=== PATIENT | male | born 1990 | race Caucasian/White ===

== ENCOUNTER 2023-06-07 12:09 | Emergency (ER) | payer OTHER, SELFPAY ==
[2023-06-07 12:18] VITALS: BP 133/83
[2023-06-07 12:37] LABS: % Basophils 1.4 % (0-2); % Eosinophils 6.8 % (0-6); % Immature Granulocytes 0.2 % (0-0.5); % Lymphocytes 25.1 % (20.5-51.1); % Monocytes 9.6 % (1.7-9.3); % Neutrophils 56.9 % (42.2-75.2); Absolute Basophils 0.1 10^3/uL (0-0.2); Absolute Eosinophils 0.3 10^3/uL (0-0.7); Absolute Lymphocytes 1.3 10^3/uL (1.2-3.4); Absolute Monocytes 0.5 10^3/uL (0.1-0.6); Absolute Neutrophils 2.9 10^3/uL (1.4-6.5); Hematocrit 42.8 % (39.0-52.0); Hemoglobin 15.4 g/dL (13.0-18.0); Mean Corpuscular Volume 86.3 fL (80.0-94.0); Mean Platelet Volume 9.4 fL (7.4-10.4); Nucleated Red Blood Cells % 0 % (-); Platelet Count 221 10^3/uL (130-400); Red Blood Cell Count 4.96 10^6/uL (4.70-6.10); Red Cell Dist. Width 11.7 % (11.5-14.5)
[2023-06-07 12:48] LABS: ALT (SGPT) 31 U/L (0-50); AST (SGOT) 28 U/L (17-59); Alkaline Phosphatase 66 U/L (38-126); Blood Urea Nitrogen 20 mg/dl (9-20); Calcium 9.4 mg/dl (8.4-10.2); Carbon Dioxide 33 mmol/L (22-30); Chloride 102 mmol/L (98-107); Glucose 96 mg/dl (70-99); Potassium 4.2 mmol/L (3.5-5.1); Sodium 141 mmol/L (135-145); Total Bilirubin 0.6 mg/dl (0.2-1.3); Total Protein 6.5 g/dl (6.3-8.2); eGFR > 60.00
[2023-06-07 12:59] LABS: Troponin I < 0.012 ng/ml
[2023-06-07 14:46] VITALS: BP 126/80
--- NOTE | 2023-06-07 15:10 | ED.GENMED ---
History of Present Illness
General
Chief Complaint: Chest Pain
Source: patient
Exam Limitations: none
Time Seen by Provider: 06/07/23 15:09
Nursing documentation reviewed up to this point in time: agreed with
Travel History
Have you had any contact with someone who has COVID-19?: No
Do you have any symptoms of coronavirus? Fever > 100 degrees, chills, cough, shortness of breath, sore throat, loss of taste or smell, muscle aches, or headache?: No
History of Present Illness
History of Present Illness:
Patient with history of ADHD and anxiety, presents to ED secondary to 2-day history of intermittent left-sided chest pain. Chest pain described as dull, achy, with intermittent radiation to neck and left arm, without any alleviating or exacerbating
factors. Denies fever or chills. Denies recent illness. Denies recent travel or surgery. Denies back pain. Denies leg pain or swelling. Denies recent change in medications or diet. Patient denies smoking or drinking alcohol. Denies previous
history of similar symptoms. Patient states that he does exercise regularly, but denies any change in his routines. There is no family history of early heart disease. There is no family history of blood clots.
Past History
Past History
ED Past Medical History: Other (ADHD)
ED Past Surgical History: None
Social History
Tobacco: Non-smoker
Alcohol: Occasional
Personal: Single
Employment: Other (college student)
Family History
Family History: Negative Diabetes, Hypertension or CAD
Review of Systems
Review of Systems
Allergies reviewed?: Yes
All Other Systems: ROS reviewed and negative except as documented in HPI and ROS
Constitutional: Reports no symptoms
EENT: Reports no symptoms
Respiratory: Reports no symptoms
Cardiac: Reports chest pain
ABD/GI: Reports no symptoms
: Reports no symptoms
Musculoskeletal: Reports no symptoms
Skin: Reports no symptoms
Neurological: Reports no symptoms
Phy Exam
Physical Exam
Physical Exam:
Physical Exam
General: no apparent distress, not acutely ill. afebrile
Head: nc/at. eomi
Neck: supple. no meningeal signs.
Heart: s1/s2 regular rate and rhythm, no murmur. equal radial pulses.
Lungs: no acute respiratory distress. clear bilaterally. mild left anterior chest wall tenderness to palpation, without erythema/ecchymosis/swelling.
Abdomen: normal bowel sounds. not tender.
Neuro: alert and oriented. no focal neurological deficits
Skin: no rash
Psychiatric: well kept. interactive and cooperative
Extremities: no edema. no calf tenderness.
Scores
Heart Score for Chest Pain Patients
STEMI patient?: No
History: Slightly or Non-Suspicious
ECG: Normal
Age: </= 45 years
Risk Factors: No Risk Factors
Troponin: </= Normal Limit
Heart Score for Chest Pain Patients: 0
Heart Score Risk: 2.5% MACE over next 6 weeks
Course
Orders/Labs/Results
Orders:
Orders
06/07/23 12:21
Electrocardiogram (*1) Urgent
Reason for Study: Chest Pain
EKG- Treatment ONCE
06/07/23 12:27
Complete Blood Count/With Diff Urgent
Comprehensive Metabolic Panel Urgent
Monotest Urgent
Comment: ADD ON
Troponin I Urgent
06/07/23 15:39
Add On- LAB Urgent
Tests Added?: monotest
CR Chest - 2 Views Urgent
Comment:
Reason For Exam: chest pain
Abnormal Lab Results
06/07/23
12:27
Monocytes % 9.6 H %
(1.7-9.3)
Eosinophils % 6.8 H %
(0-6)
Carbon Dioxide 33 H mmol/L
(22-30)
06/07/23 12:27
06/07/23 12:27
Vital Signs
Initial and Last Documented VS:
Initial Vital Signs
Temp Pulse Resp BP Pulse Ox
98.5 F 65 18 133/83 99
06/07/23 12:18 06/07/23 12:18 06/07/23 12:18 06/07/23 12:18 06/07/23 12:18
Last Documented Vital Signs
Temp Pulse Resp BP Pulse Ox
98.5 F 68 18 127/75 100
06/07/23 12:18 06/07/23 17:33 06/07/23 12:18 06/07/23 17:33 06/07/23 14:46
MDM/Problems Addressed
MDM/Problems Addressed:
Patient with an unremarkable workup in ED, including blood work, chest x-ray, EKG. Patient without any significant risk factors for ACS. In addition, patient has focal reproducible chest wall pain, concerning for potential musculoskeletal pain
versus nonspecific inflammatory process. Otherwise, patient is afebrile, hemodynamically stable, and nontoxic-appearing. Patient will be advised to take NSAIDs for symptomatic relief, along with PCP follow-up as an outpatient.
*EKG
Interpreted by ED Provider?: Yes
EKG Intrepretation Date: 06/07/23
Heart Rate: 61
Rate: normal
Rhythm: sinus
[place]: normal axis
Interval: normal interval
*Critical Care Note
Total Time (30-74mins, 75-104mins- exclusive of procedures): Not Applicable
ED Attending Note
-
Portions of this chart may have been created with voice recognition software.� Occasional wrong word or��sound alike� substitutions may have occurred due to the inherent limitations of voice recognition software.
Discharge Plan
Departure
Patient Disposition: Home (Routine Discharge)
Date of Disposition: 06/07/23
Time of Disposition: 16:27
Patient with high blood pressure during this ER visit?: Yes
Condition: Good
Discharge Problem:
Chest pain
Instructions: Chest Pain PCP Follow Up
Prescriptions:
No Action
Strattera
Zoloft:
Referrals:
Bassam Carvalho MD [Family Provider] -
Activity Restrictions/Additional Instructions:
As discussed, please follow-up with your primary care physician with any further concerns. Please take NSAIDs, i.e. Aleve/ibuprofen/Motrin/Advil, for symptomatic relief.
Interventions
Interventions:
*Risk Screen - Suicide Last Done: 06/07/23 12:18
*General Assessment Last Done: 06/07/23 12:18
*Neglect/Abuse Screening Last Done: 06/07/23 12:18
*Nursing Disposition Last Done: 06/07/23 17:33
ED- Cardiac Assessment Last Done: 06/07/23 14:43
Discharge Date and Time
Discharge Date/Time: 06/07/23 17:33
[2023-06-07 16:03] LABS: Monotest Negative (Negative)
[2023-06-07 17:32] VITALS: BP 127/75
[2023-06-07 17:33] VITALS: BP 127/75
== END 2023-06-07 17:33 | disposition home or self-care (01) ==
LOC: EMR 12:09
PROVIDERS: Student in an Organized Health Care Education/Training Program; EMERGENCY PHYSICIAN Emergency Medicine; FAMILY PHYSICIAN Family Medicine
DX: R07.89 Other chest pain (principal); R03.0 Elevated blood-pressure reading, without diagnosis of hypertension; F90.9 Attention-deficit hyperactivity disorder, unspecified type; F41.9 Anxiety disorder, unspecified
CPT/HCPCS: 99285; 71046; 80053; 84484; 85025; 86308; 93005